=== PATIENT | female | born 1950 | race Caucasian/White ===

== ENCOUNTER 2018-05-29 11:51 | Inpatient (IN) | payer OTHER ==
[~2018-05-29] VITALS: Ht 144.8 cm; Wt 73.9 kg
== END 2018-06-02 13:21 | disposition left against medical advice (07) | DRG 195 ==
LOC: ER 11:51 → SURH 18:19
PROVIDERS: ADMIT Internal Medicine
PROC: 8E0ZXY6 Isolation (ICD-10-PCS; principal; 2018-05-29)
PROC: 4A12X4Z Monitoring of Cardiac Electrical Activity, External Approach (ICD-10-PCS; 2018-05-29)
PROC: 4A033R1 Measurement of Arterial Saturation, Peripheral, Percutaneous Approach (ICD-10-PCS; 2018-05-29)
PROC: 3E0F7GC Introduction of Other Therapeutic Substance into Respiratory Tract, Via Natural or Artificial Opening (ICD-10-PCS; 2018-05-29)
PROC: B246ZZZ Ultrasonography of Right and Left Heart (ICD-10-PCS; 2018-05-29)
PROC: B020ZZZ Computerized Tomography (CT Scan) of Brain (ICD-10-PCS; 2018-05-29)
DX: J09.X2 Influenza due to identified novel influenza A virus with other respiratory manifestations (principal); I48.0 Paroxysmal atrial fibrillation; I16.0 Hypertensive urgency